=== PATIENT | female | born 1990 | race Caucasian/White ===

== ENCOUNTER 2018-05-29 15:24 | Outpatient (CLI) | payer OTHER ==
[~2018-05-29] VITALS: Ht 167.6 cm; Wt 108.3 kg
[~2018-05-29 15:24] MED LIST: NORC 5-325 PO; [UNRECOGNIZED DRUG - OTHER] PO
[2018-05-29 16:11] VITALS: BP 114/59; PULSE 92; RESP 19; Ht 167.6 cm; Wt 108.3 kg
[2018-05-29] MEDS ORDERED: CEPH-443 PO (21:59)
--- NOTE | 2018-06-12 20:29 | PN ---
Triage Information Date/Time Reason for visit: Abd/pelvic pain Weeks of Gestation 31 weeks and 2 days /Para -0-0-1 Diabetes: none Hypertention: none Objective Heart Rate: 140's Contractions: None Disposition: Discharge Assessment/Plan 27 years old 2 para 1-0-0-1 with single intrauterine at 31 weeks and 2 days complaining of abdominal pain and nausea. She states good movement. She denies nausea, vomiting, shortness of breath, chest pain, headache, visual changes, vaginal bleeding or LOF. -FHR: No sign of metabolic acidosis- Category I -Contractions: None -Urinalysis performed, possible UTI. Recommend increase fluid intake and Keflex given. -She has mild tenderness at the right side of abdomen patient transferred to emergency department for rule out appendicitis -Ultrasound performed: Normal ROMAIN, BPP 8 out of 8 -Symptoms and sign of labor, preeclampsia, kick count discussed with patient, she voiced understanding. All of her questions answered. CALE WHITEHEAD June 12, 2018 20:29
== END 2018-05-29 17:26 | disposition home or self-care (01) ==
LOC: OBT 15:24 → L-D 15:25 → OBT 17:26
PROVIDERS: ATTEND Specialist
DX: O26.893 Other specified pregnancy related conditions, third trimester (principal); Z3A.31 31 weeks gestation of pregnancy; R10.2 Pelvic and perineal pain
CPT/HCPCS: 76705; 76817; 76818; 82731; Z7500; G0463

== ENCOUNTER 2018-05-29 17:32 | Emergency (ER) | payer OTHER ==
[~2018-05-29] VITALS: Ht 167.6 cm; Wt 107.0 kg
[2018-05-29 17:49] VITALS: Ht 167.6 cm; Wt 107.0 kg
--- NOTE | 2018-05-29 21:52 | ERD ---
ER Documentation Chief Complaint Chief Complaint CLEARED BY OB - ABDOMINAL PAIN 32 WEEKS - LMP 10/19/17 HPI 27-year-old female in her 32nd week of presents with complaint of lower right quadrant pain. Patient states that the pain started yesterday. She was just in the labor and delivery department in the hospital and they recommended she come downstairs to receive an MRI to rule out appendicitis. Patient states that she has had some nausea. Denies any treatments. States that the pain is constant. Denies any fevers, migration of pain, dysuria, hematuria, vomiting. ROS All systems reviewed and are negative except as per history of present illness. Medications Home Meds Active Scripts Cephalexin* (Keflex*) 500 Mg Capsule, 500 MG PO BID for UTI for 7 Days, CAP Prov:ALTAGRACIADAVIDELTON RICKETTS 05/29/18 Discontinued Reported Medications [ Control Pilll] No Conflict Check, 1 TAB PO DAILY 01/23/13 Hydrocodone Bit-Acetaminophen* ([place]*) 1 Tab Tab, 1 TAB PO PRN 01/23/13 Allergies Allergies: Coded Allergies: No Known Allergy (Verified , 01/23/13) PMhx/Soc History of Surgery: Yes (C SECTION X1) Anesthesia Reaction: No Hx Neurological Disorder: No Hx Respiratory Disorders: No Hx Cardiac Disorders: No Hx Psychiatric Problems: No Hx Miscellaneous Medical Probl: No Hx Alcohol Use: Yes (RARE) Hx Substance Use: No Hx Tobacco Use: No Smoking Status: Former smoker FmHx Family History: No diabetes, No coronary disease, No other Physical Exam Vitals Vital Signs Date Temp Pulse Resp B/P (MAP) Pulse Ox O2 O2 Flow FiO2 Time Delivery Rate 05/29/18 98.0 88 18 116/61 100 Room Air 22:06 (79) 05/29/18 98.0 86 19 108/65 100 17:49 (79) Physical Exam Const: No acute distress Head: Atraumatic Eyes: Normal Conjunctiva ENT: Normal External Ears, Nose and Mouth. Neck: Full range of motion. No meningismus. Resp: Clear to auscultation bilaterally Cardio: Regular rate and rhythm, no murmurs Abd: Positive McBurney's tenderness. Skin: No petechiae or rashes Back: No midline or flank tenderness Ext: No cyanosis, or edema Neur: Awake and alert Psych: Normal Mood and Affect Result Diagram: 05/29/186 05/29/181925 Results 24 hrs Laboratory Tests Test 05/29/18 19:26 White Blood Count 10.3 10^3/ul Red Blood Count 4.07 10^6/ul Hemoglobin 10.4 g/dl Hematocrit 33.4 % Mean Corpuscular Volume 82.1 fl Mean Corpuscular Hemoglobin 25.6 pg Mean Corpuscular Hemoglobin Concent 31.1 g/dl Red Cell Distribution Width 14.0 % Platelet Count 295 10^3/UL Mean Platelet Volume 10.5 fl Immature Granulocytes % 0.700 % Neutrophils % 60.6 % Lymphocytes % 30.8 % Monocytes % 6.7 % Eosinophils % 1.0 % Basophils % 0.2 % Nucleated Red Blood Cells % 0.0 /100WBC Immature Granulocytes # 0.070 10^3/ul Neutrophils # 6.2 10^3/ul Lymphocytes # 3.2 10^3/ul Monocytes # 0.7 10^3/ul Eosinophils # 0.1 10^3/ul Basophils # 0.0 10^3/ul Nucleated Red Blood Cells # 0.0 10^3/ul Urine Color YELLOW Urine Clarity SLIGHTLY CLOUDY Urine pH 7.0 Urine Specific [place] 1.011 Urine Ketones NEGATIVE mg/dL Urine Nitrite NEGATIVE mg/dL Urine Bilirubin NEGATIVE mg/dL Urine Urobilinogen NEGATIVE mg/dL Urine Leukocyte Esterase 1+ Razia/ul Urine Microscopic RBC 1 /HPF Urine Microscopic WBC 3 /HPF Urine Squamous Epithelial Cells MODERATE /HPF Urine Hemoglobin NEGATIVE mg/dL Urine Glucose NEGATIVE mg/dL Urine Total Protein NEGATIVE mg/dl Sodium Level 139 mmol/L Potassium Level 4.3 mmol/L Chloride Level 107 mmol/L Carbon Dioxide Level 22 mmol/L Anion Gap 10 Blood Urea Nitrogen 6 mg/dl Creatinine 0.53 mg/dl Est Glomerular Filtrat Rate mL/min > 60 mL/min Glucose Level 84 mg/dl Calcium Level 9.8 mg/dl Total Bilirubin 0.3 mg/dl Direct Bilirubin 0.00 mg/dl Indirect Bilirubin 0.3 mg/dl Aspartate Amino Transf (AST/SGOT) 14 IU/L Alanine Aminotransferase (ALT/SGPT) 10 IU/L Alkaline Phosphatase 158 IU/L Total Protein 7.4 g/dl Albumin 3.8 g/dl Globulin 3.60 g/dl Albumin/Globulin Ratio 1.05 Lipase 57 U/L Beta HCG, Quantitative 52624.0 mIU/ml Procedures/MDM DIAGNOSTIC IMAGING REPORT Patient: KRISTOPHER ACOSTA : 1990 Age: 27 Sex: F MR #: [id number] DOS: 05/29/18 1843 Ordering MD: ELTON GALLARDO Location: [facility] Room/Bed: PROCEDURE: MR pelvis without contrast CLINICAL INDICATION: Right lower quadrant abdominal pain times 1 week. The patient is 33 weeks . History of cholecystectomy. TECHNIQUE: MRI of the pelvis without contrast was performed. COMPARISON: US PELVIS 05/29/2018; US ABDOMEN 05/29/2018 FINDINGS: There is a gravid uterus. There is mild maternal right hydronephrosis. No inflammation is seen in the maternal right lower quadrant of the abdomen. The appendix is not definitely identified. No abnormality of the maternal ovaries is seen. No free fluid is seen. Minimal subcutaneous edema posteriorly. IMPRESSION: No evidence of acute appendicitis seen. Mild maternal right hydronephrosis. Gravid uterus. RPTAT: HJES .Luis E Esquivel MD, MD Date Time Electronically viewed and signed by .Luis E Esquivel MD, MD on 05/29/2018 21:45 .S/ CC: ELTON GALLARDO [phone] MRI of the abdomen was performed and results within normal limits. UA was posit vipin for possible UTI so patient was placed on Keflex. Patient advised to take Tylenol for continued abdominal pain. Low suspicion for appendicitis, cholecystitis, ovarian torsion, pyelonephritis, PID, placenta accreta, or any other emergent condition. Patient discharged with strict ER precautions. Patient advised to follow up with PMD. All questions answered at discharge. Departure Diagnosis: Primary Impression: Abdominal pain Abdominal location: right lower quadrant Qualified Codes: R10.31 - Right lower quadrant pain Condition: Stable ELTON GALLARDO May 29, 2018 21:52
[2018-05-29] MEDS ORDERED: CEPH-443 PO (21:59)
[2018-05-29 22:06] VITALS: BP 116/61; PULSE 88; RESP 18
== END 2018-05-29 22:07 | disposition home or self-care (01) ==
LOC: FTE 17:32
DX: O26.893 Other specified pregnancy related conditions, third trimester (principal); R10.31 Right lower quadrant pain; Z3A.32 32 weeks gestation of pregnancy; Z87.891 Personal history of nicotine dependence
CPT/HCPCS: 36415; 72195; 80053; 81001; 83690; 84702; 85025; Z7502

== ENCOUNTER 2018-07-15 16:21 | Inpatient (IN) | payer OTHER ==
[~2018-07-15] VITALS: Ht 167.6 cm; Wt 111.1 kg
[~2018-07-15 16:21] MED LIST changes: +CEPH-443 PO; -NORC 5-325 PO; -[UNRECOGNIZED DRUG - OTHER] PO
[2018-07-15 16:45] VITALS: Ht 167.6 cm; Wt 111.1 kg
[2018-07-15] MEDS ORDERED: OXYTOCIN 30 UNITS/LR 500 ML IV PRN (17:00)
[2018-07-15] MEDS ORDERED: CEFAZOLIN 2 GM/50 ML (PMX) 50 ML IVPB SCH (17:00)
[2018-07-15] MEDS ORDERED: METHYLERGONOVINE 0.2 MG INJ IM PRN (17:00)
[2018-07-15] MEDS ORDERED: MISOPROSTOL 200 MCG TAB PR PRN ×2 (17:00→23:00)
[2018-07-15] MEDS ORDERED: CARBOPROST 250 MCG INJ IM PRN (17:00)
[2018-07-15] MEDS: LACTATED RINGER'S 1,000 ML IV SCH ×2 (17:29→21:17)
--- NOTE | 2018-07-15 20:17 | PREAC ---
Date/Time of Note Date/Time of Note DATE: 07/15/18 TIME: 20:16 Anesthesia Eval and Record Evaluation Time Pre-Procedure Interview DATE: 07/15/18 TIME: 20:16 Age 27 Sex female NPO: 8 hrs Preoperative diagnosis iup at 38 weeks Planned procedure repeat c section Past Medical History Past Medical History: Includes GI: Obesity Surgery & Anesthesia Issues No known issue Meds Anticoagulation: No Beta Jesica within 24 hr: No Reason Beta Jesica not given: Pt. not on B-Jesica Active Scripts Cephalexin* (Keflex*) 500 Mg Capsule, 500 MG PO BID for UTI for 7 Days, CAP Prov:ELTON GALLARDO 05/29/18 Current Medications Lactated Ringer's 1,000 ml @ 125 mls/hr Q8H IV Last administered on 07/15/18at 17:29; Admin Dose 125 MLS/HR; Start 07/15/18 at 16:43 Cefazolin Sodium/ Dextrose 50 ml @ 100 mls/hr ONCE IVPB ; Start 07/15/18 at 17:00 Oxytocin/Lactated Ringer's 500 ml @ 125 mls/hr POST IV ; Start 07/15/18 at 17:00 Oxytocin/Lactated Ringer's 500 ml @ 0 mls/hr ONCE PRN IV .VAGINAL BLEEDING; Start 07/15/18 at 17:00 Methylergonovine Maleate (Methergine) 0.2 mg ONCE PRN IM .VAGINAL BLEEDING; Start 07/15/18 at 17:00 Carboprost Tromethamine (Hemabate) 250 mcg ONCE PRN IM .VAGINAL BLEEDING; Start 07/15/18 at 17:00 Misoprostol (Cytotec) 1,000 mcg ONCE PRN MA .VAGINAL BLEEDING; Start 07/15/18 at 17:00 Meds reviewed: Yes Allergies Coded Allergies: No Known Allergy (Verified , 01/23/13) Allergies Reviewed: Yes Labs/Studies Labs Reviewed: Reviewed by anesthesiologist Result Diagram: 07/15/18 1700 07/15/18 1700 Laboratory Tests 07/15/18 17:00 Blood Bank Test 07/15/18 17:00 Antibody Screen NEGATIVE Blood Type O POSITIVE Rh Immune Globulin Candidate NO test: Positive Pre-procedure Exam Airway: Adequate mouth opening, Adequate thyromental dist Mallampati: Mallampati II Teeth: Normal Lung: Normal Heart: Normal ASA Physical Status ASA physical status: 2 Emergency: None Planned Anesthetic Neuraxial: Spinal Planned Pain Management Sub-arachniod narcotics Pre-operative Attestations Prior to commencing anesthesia and surgery, the patient was re-evaluated, there was verification of: *The patient's identity *The results of appropriate recent lab work and preoperative vital signs *The above evaluation not changing prior to induction *Anesthetic plan, risk benefits, alternative and complications discussed with patient/family; questions answered; patient/family understands, accepts and wishes to proceed. EDGAR LOPEZ Jul 15, 2018 20:17
--- NOTE | 2018-07-15 22:52 | HP ---
Date/Time of Note Date/Time of Note DATE: 07/15/18 TIME: 22:49 OB - History Hx of Present Free Text/Dictation 27 YO with IUP at 38.2 weeks and EDC 07/27/2018. The patient with history of previous delivery, who desires to have repeat delivery and Permanent sterilization. I discussed with the patient the risks, benefits, indications, and alternatives of procedure including but not limited to risks of infection, bleeding, damage to other organs, bowel, bladder, hernia formation, scar formation, possibility of blood transfusion, possible need for emergency hysterectomy, as well as the fact that tubal ligation may fail and there is 1 to 2% risk of failure over lifetime of tubal ligations and the fact that tubal ligation is permanent and irreversible. She was allowed to ask questions. All her questions were answered. Informed consent has been obtained. Care: Good Care Ultrasounds: Normal mid trimester US Obstetrical Complications: None, Gestational Hypertension Medical Complications: None Past Family/Social History * Past Medical, Surgical, Family and Obstetric Histories reviewed from chart. OB Admission Exam Physical Exam HEENT: WNL Heart: Rhythm Normal Lungs: Clear, Equal Abdomen: WNL Extremities: Normal Reflexes: Normal Last 72 hours Lab Results CBC & BMP 07/15/18 17:00 Liver Function Test 07/15/18 17:00 Alanine Aminotransferase (ALT/SGPT) 15 Albumin 3.4 Alkaline Phosphatase 172 H Aspartate Amino Transf (AST/SGOT) 15 Direct Bilirubin 0.00 Total Protein 6.4 OB Assessment/Plan Other Assessment: IUP at 38.2 weeks h/o Delivery x 2 Desires BTL gestational hypertension Other plan: Repeat Delivery and bilateral salpingectomies. OSIEL WEI MD Jul 15, 2018 22:52
[2018-07-15] MEDS ORDERED: LACTATED RINGER'S 1,000 ML IV SCH (22:53)
[2018-07-15] MEDS ORDERED: OXYCODONE/ACETAMINOPHEN (5/325) TAB PO PRN ×2 (23:00)
[2018-07-15] MEDS ORDERED: NA PHOSPHATE/BIPHOS 133 ML ENEMA PR PRN (23:00)
[2018-07-15] MEDS ORDERED: CEFAZOLIN 1 GM INJ ONE (23:00)
[2018-07-15] MEDS ORDERED: LANOLIN HPA 1 PKT TOP PRN (23:00)
[2018-07-15] MEDS ORDERED: FENTAnyl 50 MCG/ML VIAL ONE (23:14)
[2018-07-15] MEDS ORDERED: morphine SULFATE/PF (10 MG/10 ML) INJ ONE (23:14)
[2018-07-15] MEDS ORDERED: PHENYLephrine (100 MCG/ML) 10ML SYG ONE (23:24)
[2018-07-15] MEDS ORDERED: ONDANSETRON 4 MG INJ ONE (23:25)
[2018-07-15] MEDS ORDERED: DEXAMETHASONE 4 MG/ML 1 ML INJ ONE (23:25)
--- NOTE | 2018-07-16 00:43 | OPR ---
Date/Time of Note Date/Time of Note DATE: 07/16/18 TIME: 00:36 Operative Report Procedure Date: Jul 16, 2018 Preoperative Diagnosis IUP at 38.2 weeks Gestational hypertension h/o deliveries x 2 Desires permanent sterilization Postoperative Diagnosis same Right paratubal cyst Operation/Procedure Performed Repeat delivery Bilateral distal salpingectomies Right paratubal cystectomy Surgeon Fany Reddy MD [employer] Dr. Barnett Anesthesia Type: spinal Estimated Blood Loss: other (1200 ml) Transfusion none Specimen segments of bilateral tubes and right paratubal cyst Grafts/Implants none Tubes/Drains Regalado Cath Complications none Pt Condition Post Procedure: stable Disposition: PACU Procedure Description The risks, benefits, indications, alternatives of procedure including, but not limited to risk of infection, bleeding, damage to other organs, bowel, bladder, hernia formation, scar formation, possibility of blood transfusions, the risks of tubal ligation such as failure and future pregnancies were discussed with the patient. The fact that BTL is permanent and irreversible also discussed with patient. She was allowed to ask questions. All her questions were answered. Informed consent was obtained. DESCRIPTION OF PROCEDURE: She was taken to the operating room. Spinal anesthesia was induced. She was prepped and draped in the usual sterile fashion. Surgical time out one. Anesthesia was tested to be adequate. With permission from anesthesiologist, a knife was used to make a Pfannenstiel skin incision. The incision was taken down in layers. The fascia was cut, undermined and from the underlying muscle using sharp and blunt dissection. All the bleeders were cauterized. Peritoneum was entered bluntly. A low transverse incision was developed over the uterus. Amniotic fluid was clear and adequate. A viable in vertex presentation was delivered without any difficulty. The cord was clamped and cut, handed to awaiting team. Placenta was then delivered. Uterus was exteriorized, wrapped around a moist lap. Inside uterus was cleaned using a dry lap. All residual membranes were removed. The uterine incision was then closed using #1 Monocryl in 2 layers. Right tube also had a large paratubal cyst. A 5 cm distal end of the right tube was ligated 3 times using 0 plain tie and the ligated portion was cut, sent to pathology. This also included he right paratubal cyst. Same procedure was done on the contralateral side. The uterus was inserted back inside the abdominal cavity. Irrigation was done carefully. we noticed bleeding form the left angle of the uterine incision. Bladder flap developed and bladder was pushed down. Multiple figure of 8 sutures of # 1 Chromic placed to stop the bleeding. Careful evaluation of the uterine incision revealed no further bleeding. The tubal ligation sites were evaluated carefully. There was no bleeding. The peritoneum and rectus muscles and fascia were evaluated. All bleeders cauterized. Peritoneum was closed using 2-0 Monocryl. At this time, the count was correct. Rectus muscle was reapproximated using 2-0 Monocryl. Rectus fascia was closed using #1 Vicryl. Subcutaneous tissue was cleaned and irrigated. All bleeders cauterized and the skin closed using Insorb. All counts correct. FANY REDDY MD Jul 16, 2018 00:42
[2018-07-16] MEDS ORDERED: NALOXONE (0.4 MG/ML) INJ IV PRN (01:00)
[2018-07-16] MEDS ORDERED: ONDANSETRON 4 MG INJ IV PRN (01:00)
[2018-07-16] MEDS ORDERED: ZOLPIDEM 5 MG TAB PO PRN (01:00)
[2018-07-16] MEDS ORDERED: DIPHENHYDRAMINE 50 MG INJ IV PRN (01:00)
[2018-07-16] MEDS ORDERED: HYDROmorphONE 0.5 MG/0.5 ML SYG IV PRN ×2 (01:00)
[2018-07-16] MEDS: OXYTOCIN 30 UNITS/LR 500 ML IV SCH ×2 (01:10→05:24)
[2018-07-16] MEDS: KETOROLAC 30 MG INJ IV PRN ×4 (03:06→23:12)
[2018-07-16 04:00] VITALS: BP 130/76; PULSE 76; RESP 19
[2018-07-16 05:42] VITALS: BP 103/52; PULSE 78; RESP 17
[2018-07-16] MEDS: IBUPROFEN 600 MG TAB PO SCH ×2 (06:00)
[2018-07-16 07:50] VITALS: BP 111/61; PULSE 62; RESP 18
--- NOTE | 2018-07-16 08:30 | PAC ---
Date/Time of Note Date/Time of Note DATE: 07/16/18 TIME: 08:29 Post-Anesthesia Notes Post-Anesthesia Note Last documented vital signs Vital Signs Date Temp Pulse Resp B/P (MAP) Pulse Ox O2 O2 Flow FiO2 Time Delivery Rate 07/16/18 98.4 78 17 103/52 Room Air 05:42 (69) 07/16/18 98.6 97 04:00 Activity: WNL Respiratory function: WNL Cardiovascular function: WNL Mental status: Baseline Pain reasonably controlled: Yes Hydration appropriate: Yes Nausea/Vomiting absent: Yes EDGAR LOPEZ Jul 16, 2018 08:29
--- NOTE | 2018-07-16 08:47 | QN ---
Documentation Comment s/p c/s Subjective: no complaint Objective: Afebrile, VSS NAD A&O Abdomen: soft, appropriate tender Incision: no sign of bleeding/infection mild lochia Extremity: 1+ edema bilaterally Assessment: S/p C/S + BTL POD # 0 Recovering Well Plan: current care OSIEL WEI MD Jul 16, 2018 08:47
[2018-07-16] MEDS: SENNA/DOCUSATE NA (8.6MG/50MG) TAB PO SCH ×2 (08:49→21:47)
[2018-07-16] MEDS: LACTATED RINGER'S 1,000 ML IV SCH ×2 (08:50→16:49)
--- NOTE | 2018-07-16 10:57 | NSTRPT ---
NST Information Datetime Report Generated by CPN: 07/16/2018 10:56 Datetime: 07/15/2018 14:12 NST Information EGA: 38.2 Test Number: 3 Time on Monitor: 07/15/2018 15:02 Time off Monitor: 07/15/2018 15:33 NST Duration (Min): 31 Reason for NST: Gestational Hypertension Test and Monitor Explained: Monitor Explained; Test Explained; Verbalized Understanding Pulse: 94 Resp: 18 SBP: 116 DBP: 70 Test Evaluation NST Interventions: PO Hydration Patient States Movement: Present Contraction Frequency: NONE FHR Baseline : 140 Variability: Moderate 6-25bpm Accelerations: 15X15 Decelerations: None FHR Category: Category I NST Results: Reactive Comments: To u/s. ROMAIN 7.7cm. cephalic. pt coplaints of headaches since yesterday. states her hands are swollen and that yesterday her face was swollen. 151-Report to Dr Altman, recommends pt be delivered. Dr Willis paged. 153-Report to Dr Willis including Dr Altman's recommendations and pt is R C/sx2, NPO since 1300 . Order to admit to L_D for delivery. Report to KWASI Gurrola in L_D. Pt states understanding to go straight to L_D now and to remain NPO Electronically Signed By E-Signature: with User ID: [id number] Datetime: 06/06/2018 14:36 NST Information EGA: 32.5 NST Duration (Min): 26 Datetime: 06/03/2018 14:41 NST Information EGA: 32.2 NST Duration (Min): 34
[2018-07-16 16:00] VITALS: BP 100/53; PULSE 63; RESP 18
[2018-07-16 20:05] VITALS: BP 114/56; PULSE 85; RESP 18
[2018-07-16] MEDS: FERROUS SULFATE (EC) 325 MG TAB PO SCH (21:47)
[2018-07-17 00:05] VITALS: BP 112/62; PULSE 78; RESP 17
[2018-07-17] MEDS: LACTATED RINGER'S 1,000 ML IV SCH (00:43)
[2018-07-17] MEDS: IBUPROFEN 600 MG TAB PO SCH ×5 (00:59→23:32)
[2018-07-17 03:45] VITALS: BP 108/56; PULSE 92; RESP 17
[2018-07-17 09:00] VITALS: BP 128/66; PULSE 86; RESP 18
[2018-07-17] MEDS: SENNA/DOCUSATE NA (8.6MG/50MG) TAB PO SCH ×2 (09:22→20:40)
[2018-07-17] MEDS: FERROUS SULFATE (EC) 325 MG TAB PO SCH ×3 (09:22→20:40)
--- NOTE | 2018-07-17 14:59 | QN ---
Documentation Comment s/p c/s Subjective: no complaint Objective: Afebrile, VSS NAD A&O Abdomen: soft, appropriate tender Incision: no sign of bleeding/infection mild lochia Extremity: 1+ edema bilaterally Assessment: S/p C/S + BTL POD # 1 Recovering Well Plan: current care OSIEL WEI MD Jul 17, 2018 14:59
--- NOTE | 2018-07-17 17:04 | OPPN ---
Date/Time of Note Date/Time of Note DATE: 07/17/18 TIME: 17:03 Anesthesia Follow up Anesthesia Follow up Last documented vital signs Vital Signs Date Temp Pulse Resp B/P (MAP) Pulse Ox O2 O2 Flow FiO2 Time Delivery Rate 07/17/18 98.0 86 18 128/66 Room Air 09:00 (86) 07/16/18 98 20:05 Respiratory function: WNL Cardiovascular function: WNL Comments SATISFACTORY PAIN MANAGEMENT WITH INTRATHECAL DURAMORPH. NO COMPLICATIONS EDGAR LOPEZ Jul 17, 2018 17:04
[2018-07-17 19:40] VITALS: BP 117/58; PULSE 86; RESP 20
[2018-07-18 03:45] VITALS: BP 116/54; PULSE 97; RESP 18
[2018-07-18] MEDS: IBUPROFEN 600 MG TAB PO SCH ×2 (05:29→12:27)
--- NOTE | 2018-07-18 08:49 | DS ---
Date/Time of Note Date/Time of Note DATE: 07/18/18 TIME: 08:48 Obstetrical Discharge Record Final Diagnosis Final Diagnosis: Term delivered Vaginal Delivery Obstetrical Delivery: Bilateral Tubal Ligation Section Section: Repeat Complications Augmentation: No Induction: No Rupture of Membranes: No Condition on Discharge Physical Assessment Voiding: Yes Bowel Movement: Yes Breast: Soft, non-tender, Filling Fundus: Firm Abdomen and Incision: soft, appropriate tenderness. Incision is clean and no sign of infection Calf Tenderness: No Patient Condition: Good OSIEL WEI MD Jul 18, 2018 08:49
[2018-07-18] MEDS ORDERED: DIPHTH/TET/ACEL PERTUSS (ADULT) 0.5 ML VIAL IM* ONE (09:00)
[2018-07-18] MEDS ORDERED: MEASLES,MUMPS,RUBELLA VACCINE INJ SC* ONE (09:00)
[2018-07-18 09:30] VITALS: BP 112/59; PULSE 86; RESP 18
[2018-07-18] MEDS: SENNA/DOCUSATE NA (8.6MG/50MG) TAB PO SCH (09:37)
[2018-07-18] MEDS: FERROUS SULFATE (EC) 325 MG TAB PO SCH (09:37)
--- NOTE | 2018-07-19 16:16 | DELSUM ---
Delivery Summary A-C Datetime Report Generated by CPN: 07/19/2018 16:16 DELIVERY PERSONNEL Economics Consultant: Metz, Anna MATERNAL INFORMATION Delivery Anesthesia: Spinal Medications in Delivery: see anethesiologist flowsheet Delivery QBL (ml): 900 Placenta Cultured: No Maternal Complications: Other Other Maternal Complications: HIGH BP LABOR SUMMARY EDC: 07/27/2018 00:00 No. Babies in Womb: 1 Attempted: No Labor Anesthesia: None LABOR INFORMATION Reason for Induction: Gest. HTN/PreEclam/Eclamp Oxytocin: N/A Group B Beta Strep: Not Done Steroids Given: None Reason Steroids Not Administered: Not Applicable MEMBRANES Membranes Rupture Method: Artificial Rupture of Membranes: 07/15/2018 23:47 Length of Rupture (hr): 0.03 Amniotic Fluid Color: Clear Amniotic Fluid Amount: Moderate Amniotic Fluid Odor: None STAGES OF LABOR Stage 3 hr: 0 Stage 3 min: 1 CSECTION DELIVERY Primary Indication: Repeat Elective CSection Urgency: Non Elective CSection Incidence: Repeat Labor: No Labor Elective: Nonelective CSection Incision: Lower Uterine Transverse Sterilization Procedure: [place] BABY A INFORMATION Delivery Date/Time: 07/15/2018 23:49 Method of Delivery: Born in Route : No : N/A Forceps: N/A Vacuum Extraction: N/A Shoulder Dystocia : N/A SHOULDER DYSTOCIA BABY A Infant Delivery Date/Time: 07/15/2018 23:49 PRESENTATION/POSITION BABY A Presentation: Cephalic Cephalic Presentation: Vertex Vertex Position: Left Occipital Posterior Breech Presentation: N/A PLACENTA INFORMATION BABY A Placenta Delivery Time : 07/15/2018 23:50 Placenta Method of Delivery: Manual Removal Placenta Status: Delivered SCORES BABY A Heart Rate 1 min: >100 bpm Resp Effort 1 min: Good Cry Reflex Irritability 1 min: Cough/Sneeze/Pulls Away Muscle Tone 1 min: Active Motion Color 1 min: Blue/Pale Resuscitation Effort 1 min: Tactile Stimulation SCORE 1 MIN: 8 Heart Rate 5 min: >100 bpm Resp Effort 5 min: Good Cry Reflex Irritability 5 min: Cough/Sneeze/Pulls Away Muscle Tone 5 min: Active Motion Color 5 min: Body Kuna, Extremit Blue Resuscitation Effort 5 min: Tactile Stimulation SCORE 5 MIN: 9 INFORMATION BABY A Gestational Age at Delivery: 38.2 Gestational Status: Early Term- 37- 38.6 Weeks Outcome : Liveborn Infant Condition : Stable Infant Sex: Male IDENTIFICATION/MEDS BABY A ID Band Number: [id number] ID Band Location: Right Leg; Left Arm Sensor Applied: Yes Sensor Number: [id number] Sensor Location : Cord Clamp Vitamin K Given : Not Given Erythromycin Given: Not Given WEIGHT/LENGTH BABY A Birthweight (gm): 4020 Weight (lb): 8 Infant Weight (oz): 14 Length (in): 20.75 Length (cm): 52.71 CORD INFORMATION BABY A No. Cord Vessels: 3 Nuchal Cord : N/A Cord Blood Taken: Yes Infant Suction: Mouth; Nose ASSESSMENT BABY A Complications: None Physical Findings at Delivery: Within Normal Limits Respirations: Appears Normal Electronic Imager/ALS Called : No Care By: Jaky METZ Transferred To: Remains with Mother
== END 2018-07-18 14:50 | disposition home or self-care (01) | DRG 785 ==
LOC: L-D 16:21 → PP1 07-16 04:05 → EDSTATUS 07-27 15:48
PROVIDERS: ADMIT Specialist; ATTEND Specialist
PROC: 10D00Z1 Extraction of Products of Conception, Low, Open Approach (ICD-10-PCS; principal; 2018-07-16)
PROC: 0UT70ZZ Resection of Bilateral Fallopian Tubes, Open Approach (ICD-10-PCS; 2018-07-16)
PROC: 0UB40ZZ Excision of Uterine Supporting Structure, Open Approach (ICD-10-PCS; 2018-07-16)
DX: O65.5 Obstructed labor due to abnormality of maternal pelvic organs (principal); O34.211 Maternal care for low transverse scar from previous cesarean delivery; O13.4 Gestational [pregnancy-induced] hypertension without significant proteinuria, complicating childbirth; N83.8 Other noninflammatory disorders of ovary, fallopian tube and broad ligament; Z3A.38 38 weeks gestation of pregnancy; Z37.0 Single live birth; Z30.2 Encounter for sterilization
CPT/HCPCS: 80053; 81001; 84560; 85025; 85610; 85730; 86592; 86850; 86900; 86901; 87340; 88302; 99464; J0690; J1100; J1885; J2274; J2370; J2405; J2590; J3010; J7120